=== PATIENT | female | born 1990 | race Caucasian/White ===

== ENCOUNTER 2019-01-22 22:59 | Emergency (ER) | payer OTHER ==
[~2019-01-22] VITALS: Ht 180.3 cm; Wt 120.2 kg
--- NOTE | 2019-01-22 23:07 | ED.ADGEN ---
Adult General Chief Complaint Chief Complaint ".. I cut my self on some broken glass at the [employer] on Fri.. I went to push a cart through at tight area.. slipped and fell forward on the glass tray.. and the glasses broke and cut my Rt. wrist and Lt thumb.. I ve been trying to take care of it....but I think it is getting infected..." HPI HPI Patient is a 28 year old female who presents with above hx and complaints lacerations and abrasion to Rt. wrist and Lt thumb cause by fall into tray of glasses at work. Patient does not remember her last tetanus. Distal neurovascular intact. Has obvious swelling of both wrist and left thumb. Lacerations appeared to be developing some cellulitis. Patient denies any travel or specific or specific ill contact. Patient is right-hand dominant. Review of Systems Review of Systems Constitutional: Denies fever or chills [] Eyes: Denies change in visual acuity, redness, or eye pain [] HENT: Denies nasal congestion or sore throat [] Respiratory: Denies cough or shortness of breath [] Cardiovascular: No additional information not addressed in HPI [] GI: Denies abdominal pain, nausea, vomiting, bloody stools or diarrhea [] : Denies dysuria or hematuria [] Musculoskeletal: Denies back pain or joint pain [] Integument: Denies rash or skin lesions []complaints of lacerations and possible cellulitis Neurologic: Denies headache, focal weakness or sensory changes [] Endocrine: Denies polyuria or polydipsia [] All other systems were reviewed and found to be within normal limits, except as documented in this note. Family History Family History Noncontributory Current Medications Current Medications Current Medications Medications (Trade) Dose Ordered Sig/Aaron Start Time Stop Time Status Last Admin Dose Admin Bacitracin (Bacitracin Topical Pkt) 1 pkt 1X ONCE 01/22/19 23:45 01/22/19 23:46 DC 01/23/19 00:03 1 PKT Diphtheria/ Tetanus/Acell Pertussis (Boostrix) 0.5 ml ONCE ONCE 01/23/19 00:00 01/23/19 00:07 DC 01/23/19 00:03 0.5 ML Trimethoprim/ Sulfamethoxazole (Bactrim Ds) 1 tab 1X ONCE 01/22/19 23:45 01/22/19 23:46 DC 01/23/19 00:03 1 TAB Allergies Allergies Allergies Coded Allergies Type Severity Reaction Last Updated Verified No Known Drug Allergies 01/22/19 No Physical Exam Physical Exam Constitutional: Well developed, well nourished, in moderate acute distress, non- toxic appearance. [] HENT: Normocephalic, atraumatic, bilateral external ears normal, oropharynx moist, no oral exudates, nose normal. [] Eyes: PERRLA, EOMI, conjunctiva normal, no discharge. [] Neck: Normal range of motion, no tenderness, supple, no stridor. [] Cardiovascular:Heart rate regular rhythm, no murmur [] Lungs & Thorax: Bilateral breath sounds clear to auscultation [] Abdomen: Bowel sounds normal, soft, no tenderness, no masses, no pulsatile masses. [] Skin: Warm, dry, no erythema, no rash. [] Lacerations and cellulitis as per history of present illness. No adenopathy or striations. Back: No tenderness, no CVA tenderness. [] Extremities: No tenderness, no cyanosis, no clubbing, ROM intact, no edema. [] Neurologic: Alert and oriented X 3, normal motor function, normal sensory function, no focal deficits noted. [] Psychologic: Affect normal, judgement normal, mood normal. [] Current Patient Data Vital Signs Vital Signs Date Time Temp Pulse Resp B/P (MAP) Pulse Ox O2 Delivery O2 Flow Rate FiO2 01/22/19 23:14 98.1 105 18 96 Room Air EKG EKG [] Radiology/Procedures Radiology/Procedures My interpretation of x-rays of left hand and right wrist show no obvious[]glass fragments. Course & Med Decision Making Course & Med Decision Making Pertinent Labs and Imaging studies reviewed. (See chart for details) Patient refuses to give urine for urine . Patient seems aware of risk to a fetus. Patient to use warm salt water compresses or Epsom salts water compresses 4 times a day. Then apply Polysporin. Patient massage Polysporin into the skin. Patient take Bactrim DS twice a day. Patient follow-up primary care. Patient return if any concerns. Follow-up with work comp. [] Final Impression Final Impression 1. Laceration Rt. wrist and Lt. thumb[]- with early cellulitis Dragtrupti Disclaimer Kadyon Disclaimer This electronic medical record was generated, in whole or in part, using a voice recognition dictation system. Dragon Disclaimer This chart was dictated in whole or in part using Voice Recognition software in a busy, high-work load, and often noisy Emergency Department environment. It may contain unintended and wholly unrecognized errors or omissions. CANDACE CEBALLOS MD Jan 22, 2019 23:07
[2019-01-22 23:14] VITALS: BP 140/92
[2019-01-22] MEDS ORDERED: SULF1TAB24 PO (23:36)
[2019-01-22] MEDS ORDERED: DIPHTH,PERTUSS(ACELL),TET TOX 0.5 ML DISP.SYRIN. VAX IM ONE (23:45)
[2019-01-22] MEDS ORDERED: SMZ/TMP 800/160MG TABLET. PO ONE (23:45)
[2019-01-22] MEDS ORDERED: BACITRACIN ZINC TOPICAL OINT PACKET. TP ONE (23:45)
[2019-01-23] MEDS ORDERED: DIPHTH,PERTUSS(ACELL),TET TOX 0.5 ML DISP.SYRIN. VAX IM ONE
--- NOTE | 2019-01-23 08:16 | RAD ---
LEFT HAND, VIEWS 3 LEFT WRIST, 3 VIEWS Indication: Cut by glass a few days ago. Hand Findings: Views of the hand demonstrate normal alignment. No fractures or osseous lesions are present. No significant degenerative changes are seen. Mineralization is normal. There are no erosive changes. Question minimal dorsal soft tissue swelling overlying the metacarpals. No radiopaque foreign body is identified. Wrist findings: There is no acute fracture or dislocation. No osseous lesion is identified. The bony articulations are normal. The mineralization is normal. There is no soft tissue swelling or radiopaque foreign body IMPRESSION: 1. No radiopaque foreign body is seen. 2. No acute fracture. Electronically signed by: Jake Khan MD (01/23/2019 8:13 AM) [facility]
== END 2019-01-23 00:55 | disposition home or self-care (01) ==
LOC: ER 22:59
DX: S61.511A Laceration without foreign body of right wrist, initial encounter (principal); S61.011A Laceration without foreign body of right thumb without damage to nail, initial encounter; L03.011 Cellulitis of right finger; L03.113 Cellulitis of right upper limb; W01.110A Fall on same level from slipping, tripping and stumbling with subsequent striking against sharp glass, initial encounter; Y93.89 Activity, other specified; Y92.89 Other specified places as the place of occurrence of the external cause; Y99.0 Civilian activity done for income or pay
CPT/HCPCS: 73110; 73130; 90471; 90715; 99284